=== PATIENT | female | born 1955 | race Caucasian/White ===

== ENCOUNTER 2017-03-07 05:15 | Inpatient (IN) | payer OTHER ==
[~2017-03-07] VITALS: Ht 162.6 cm; Wt 72.6 kg
[~2017-03-07 05:15] MED LIST: ESTRACE0.5 M1 PO
--- NOTE | 2017-03-07 07:31 | Admission Core Measures ---
Admission Meds I reviewed the following Meds: Current Medications Sig/Ambar Start time Last Medication Dose Stop Time Status Admin Cefazolin Sodium 2,000 MG ONCE 03/07 0000 NR (Kefzol-Ancef Inj) 03/07 9519 Acute Coronary Syndrome Inclusion Criteria ACS Diagnosis No Inpatient Core Measures LDL Reminder: If No, please order W/I first 24hr of stay Congestive Heart Failure Inclusion Criteria CHF Diagnosis No Cerebrovascular accident Inclusion Criteria CVA/TIA Diagnosis No Inpatient Core Measures Bedside Swallow Eval Reminder: If BSE failed, place ST order Antithrombotic Reminder: Order Antithrombotic Medication by end of day 2 Antithrombotic Reminder: Document Reason Antithrombotic Not ordered by end of day 2 AFIB/Flutter Reminder: If Present, add to problem list AFIB/Flutter Reminder: Order Anticoag Medication for pts with AFIB/Flutter Atherosclerosis Reminder: If Present, add to problem list LDL Reminder: If No, please order W/I first 24hr of stay PT Order Reminder: If No, please order Venous thromboembolism Inpatient Core Measures VTE Risk Factors: Age > 40, Estrogen, [facility] prophylaxis d/t No contraindications No VTE Pharm Prophylaxis d/t No contraindications Inclusion Criteria - Per Current guidelines, there needs to be overlap - treatment for the first 5 days of Warfarin therapy. - Parenteral Anticoagulation (IV or SC) needs to be - given along with Warfarin therapy. VTE Diagnosis No VTE Type NONE VTE Confirmed by (Test) NONE Problem List As ranked by this Provider includes Assessment & Plan 1. Status post total hip replacement, right HOME MEDS Home Med List Estradiol (Estrace) 0.5 MG TABLET 1 TAB PO DAILY HRT (Reported)
[2017-03-07] MEDS ORDERED: COLACE100 M1 PO (07:58)
[2017-03-07] MEDS ORDERED: DILAUDID2 M1 PO (07:58)
[2017-03-07] MEDS ORDERED: MS CONTIN15 M2 PO (07:58)
[2017-03-07] MEDS ORDERED: MIRALAX17 G1 PO (07:58)
[2017-03-07] MEDS ORDERED: ASPIRIN325 M2 PO (07:58)
--- NOTE | 2017-03-07 08:01 | Patient Discharge Instructions ---
Discharge Instructions General Discharge Information You were seen/treated for: Right hip degenerative joint disease You had these procedures: Right total hip arthroplasty Watch for these problems: Significantly increased pain or difficulty ambulating, temperatures over 101 Increased redness or drainage from incision No bath, but you may shower: Yes Other wound care: Daily dry dressing change Special Instructions: See pre-printed information packet Diet Continue normal diet: Yes Activity Activity Self Limited: Yes Other activity limits: Ambulate with walker as instructed by physical therapy Do not drive or operate machinery until seen by your surgeon and off all pain medications Acute Coronary Syndrome Inclusion Criteria At DC or during hospital stay patient has or had the following: ACS DIAGNOSIS No Discharge Core Measures Meds if any: Prescribed or Continued at Discharge Meds if any: NOT Prescribed or Continued at Discharge Congestive Heart Failure Inclusion Criteria At DC or during hospital stay patient has or had the following: CHF DIAGNOSIS No Discharge Core Measures Meds if any: Prescribed or Continued at Discharge Meds if any: NOT Prescribed or Continued at Discharge Cerebrovascular accident Inclusion Criteria At DC or during hospital stay patient has or had the following: CVA/TIA Diagnosis No Discharge Core Measures Meds if any: Prescribed or Continued at Discharge Meds if any: NOT Prescribed or Continued at Discharge Venous thromboembolism Inclusion Criteria VTE Diagnosis No VTE Type NONE VTE Confirmed by (Test) NONE Discharge Core Measures - Per Current guidelines, there needs to be overlap - treatment for the first 5 days of Warfarin therapy. - If discharged on Warfarin prior to 5 days of - overlap therapy, the patient will need to be - assessed for post discharge needs including - *Post discharge parental anticoagulation - *Warfarin and/or parental anticoagulation education - *Follow up date to check INR post discharge At least 5 days overlap therapy as Inpatient No Meds if any: Prescribed or Continued at Discharge Note: Overlap Therapy is Warfarin and Anticoagulant Meds if any: NOT Prescribed or Continued at Discharge
--- NOTE | 2017-03-07 08:05 | Surg Short-stay <48hrs Dis Sum ---
Visit Information Visit Dates Admission Date: 03/07/17 Discharge Date: 03/08/17 Surgical Short Stay DC Summary Admission Diagnosis: Right hip degenerative joint disease Final Diagnosis: Same Procedure(s): Right total hip arthroplasty Summary/Significant Findings: The patient was admitted on 03/07/2017. She was brought to the operating theater later that day and she underwent a right total hip arthroplasty. Postoperativly the patient progressed as expected, her pain was under adequate control, and she ambulating well with physical therapy. The patient was discharged as an uneventful hospital course. Condition at Discharge: Stable Discharge Disposition: home health services Discharge instructions provided to patient/family: Yes Post discharge follow-up plan: Call the office to be seen in 6 weeks or earlier if needed
--- NOTE | 2017-03-07 10:11 | RADIOLOGY REPORT ---
EXAMINATION: XR HIP, RIGHT CLINICAL INFORMATION: Total hip replacement. COMPARISON: None TECHNIQUE: Two views of the right hip. FINDINGS: The noncemented components of the total hip arthroplasty are in satisfactory position and there is anatomic alignment at the hip. There is estimated to be approximately 40 degrees lateral version and 30 degrees anterior version of the acetabular cup. No periprosthetic fracture. Postoperative soft tissue emphysema around the hip. IMPRESSION: Satisfactory positioning and alignment of components of right total hip arthroplasty.
[2017-03-07 11:30] VITALS: BP 138/7
--- NOTE | 2017-03-07 13:02 | PN- Orthopedic ---
Subjective Subjective: No events noted in PACU. Patient currently admits to minimal right hip pain (). Denies any numbness or tingling in RLE. Denies any calf pain. Denies any nausea, vomiting, chest pain, or SOB. She has not yet voided since surgery. Objective Vital Signs and I&Os Vital Signs Date Time Temp Pulse Resp B/P B/P Pulse O2 O2 Flow FiO2 Mean Ox Delivery Rate 03/07 1130 98.4 64 18 138/7 96 Room Air Room Air Intake & Output 03/07 1600 03/07 0800 03/07 0000 03/06 1600 03/06 0800 03/06 0000 Intake Total Output Total Balance Patient 160 lb Weight Physical Exam: Afebrile, VSS. General: Lying in bed in NAD. Cardiac: RRR, no murmur noted Pulmonary: CTAB. RLE: Dressing is c/d/i. Non tender to palpation at dressing site. Sensation and motor grossly intact. No calf tenderness. 2+ DP/PT pulse. Current Medications: Current Medications Sig/Ambar Start time Last Medication Dose Route Stop Time Status Admin Acetaminophen 1,000 MG Q8 03/07 0743 AC IV 03/07 2201 Acetaminophen 0 .STK-MED ONE 03/07 0730 DC PO Aspirin 325 MG BID 03/07 1000 AC PO Bupivacaine HCl/ 30 ML .STK-MED ONE 03/07 0930 DC Epinephrine Bitart SC 03/07 0931 Cefazolin Sodium 1,000 MG IQ8 03/07 1600 AC IV 03/08 0001 Cefazolin Sodium 2,000 MG ONCE 03/07 0000 DC IV 03/07 2359 Clonidine 1 MCG .STK-MED ONE 03/07 0930 DC EPID 03/07 0931 Dextrose/Sodium 1,000 ML .[id number] 03/07 1130 AC 03/07 Chloride IV 1208 Docusate Sodium 100 MG BID 03/07 1000 AC PO Estradiol 0.5 MG DAILY 03/07 1000 AC PO Hydromorphone HCl 2 MG Q4P PRN 03/07 1130 AC PO Hydromorphone HCl 4 MG Q4P PRN 03/07 1130 AC PO Ketorolac 15 MG Q8P PRN 03/07 1130 AC Tromethamine IV 03/10 1130 Lactobacillus 1 CAP DAILY 03/07 1000 AC Acidophilus PO Morphine Sulfate 2 MG Q2P PRN 03/07 1130 AC IV Ondansetron HCl 4 MG Q6P PRN 03/07 1130 AC IV Oxycodone HCl 0 .STK-MED ONE 03/07 0731 DC PO Polyethylene Glycol 17 GM DAILY 03/07 1000 AC PO Povidone Iodine 1 LETICIA .STK-MED ONE 03/07 0930 DC TOP 03/07 0931 Prochlorperazine 10 MG Q6P PRN 03/07 1130 AC PO Results Recent Imaging Studies: Post-op right hip x-ray: Satisfactory positioning and alignment of components of right total hip arthroplasty. Assessment/Plan Assessment/Plan 61 y/o female POD # 0 s/p right total hip arthroplasty, doing well post operatively. - Diet as tolerated - IV/PO pain medications - Antiemetics prn nausea - PT consultation - Monitor ability to void - DVT ppx - ASA 325mg BID - Plan for d/c tomorrow Core Measures/Miscellaneous Venous Thromboembolism VTE Risk Factors: Age > 40, Estrogen, Surgery VTE Contraindications: No Contraindications VTE Diagnosis: No VTE Type: NONE VTE Confirmed by (Test): NONE Beta Veronica Is Beta Veronica a Home Med? No Antibiotics Is Patient on Antibiotics? Yes If Yes: prophylaxis
[2017-03-07 13:58] VITALS: BP 122/82
[2017-03-07 16:02] VITALS: BP 116/80
--- NOTE | 2017-03-07 19:15 | Operative Report ---
Operative/Inv Procedure Report Surgery Date: 03/07/17 Name of Procedure: Right total hip replacement Pre-Operative Diagnosis: Primary right hip DJD Post-Operative Diagnosis: Same Estimated Blood Loss: 250 Surgeon/Social Worker Clinical: JAM PATEL,GRISEL Burns Anesthesia: block Operative/Procedure Note Note: Description of Procedure: The patient was taken to the operating room and positively identified. After induction of spinal anesthesia and administration of appropriate pre-operative antibiotics, the patient was positioned supine on the operating room table and all bony prominences were well padded. After performing a surgical timeout, the right lower extremity was prepped and draped in the usual sterile fashion. A direct anterior approach was made to the right hip. The incision was carried sharply through superficial soft tissues to the level of the fascia. Meticulous hemostasis was maintained with Bovie electocautery. The fascia over the tensor fascia blake muscle was opened sharply and the interval between the TFL and the sartorius was entered bluntly taking care to stay lateral to the lateral femoral cutaneous nerve. Retractors were placed around the femoral neck and the pericapsular fat was identified. The ascending branches of the lateral femoral circumflex vessels were identified and carefully coagulated. The pericapsular fat and anterior capsule were then resected. A napkin ring osteotomy was performed and the femoral head was removed without difficulty. Attention was then turned to the acetabulum. After appropriate placement of retractors, the acetabulum was exposed. Soft tissue was cleaned from the acetabular margin and notch. Overhanging osteophytes were removed and the teardrop was exposed. The acetabulum was then sequentially reamed to accept a 54 mm Vy Tritanium hemispherical solid back shell. This was impacted into place in the appropriate position and fitted with a 36 mm Trident X3 zero degree polyethylene insert. Attention was then turned to the femur. After performing the appropriate ligament releases, the proximal femur was exposed. It was then sequentially broached to accept a size #4 [place] Accolade 2 stem. This was trialed for leg length and stability. The trial component was removed and the final component was impacted into place. The trunnion was carefully cleaned and fit with a 36 mm, +0 Biolox delta ceramic femoral head. The hip was reduced and put through a full range of motion and found to be stable. The articular space was then irrigated with sterile saline. The periarticular soft tissues were infilitrated with Marcaine. The fascial layer was closed with interrupted #1 vicryl suture and the skin was re-approximated with interrupted 2 -0 vicryl. The skin was closed with a running 3-0 V-Lock suture. Steri-strips and a sterile dressing were applied. The patient was awakened and taken to the recovery room in satisfactory condition.
[2017-03-07 22:40] VITALS: BP 122/78
[2017-03-08 02:59] VITALS: BP 118/80
[2017-03-08 07:00] VITALS: BP 110/64
--- NOTE | 2017-03-08 07:02 | PN- Orthopedic ---
Subjective Subjective: The patient was seen this morning postoperatively day #1. She reports that her pain is under adequate control and has no other complaints at the current time. She is eager to work with physical therapy and be discharged later today if okay. Objective Vital Signs and I&Os Vital Signs Date Time Temp Pulse Resp B/P B/P Pulse O2 O2 Flow FiO2 Mean Ox Delivery Rate 03/08 0259 97.6 61 18 118/80 95 Room Air / 2240 97.5 56 18 122/78 95 Room Air 03/07 1602 97.6 65 20 116/80 97 Room Air / 1438 Room Air / 1358 97.8 67 20 122/82 99 / 1130 98.4 64 18 138/7 96 Room Air Room Air Intake & Output 03/08 0800 03/08 0000 03/07 1600 / 0800 / 0000 / 1600 Intake Total 1040 1025 Output Total 800 2300 1000 Balance -800 -1260 25 Intake, IV 225 Intake, Oral 1040 800 Output, Urine 800 2300 1000 Patient 160 lb Weight Physical Exam: Gen.: Alert and in no obvious distress Skin: Warm and dry Extremities: Bilateral lower extremities are warm without calf tenderness or significant edema. Gross motor and sensory are intact. Right hip surgical dressing is clean, dry, and intact. There is expected nando- incisional edema and thigh compartments remain soft. Assessment/Plan Assessment/Plan Assessment: 61-year-old female status post right total hip arthroplasty postoperative day #1. The patient is progressing as expected and her pain is under adequate control. Plan: Continue to work with physical therapy Hep-Lock IV fluids Continue current pain regiment GI and DVT prophylaxis Follow-up morning laboratory studies Incentive spirometry Discharge home later today if okay with PT Core Measures/Miscellaneous Venous Thromboembolism VTE Risk Factors: Age > 40, Estrogen, Surgery VTE Contraindications: No Contraindications VTE Diagnosis: No VTE Type: NONE VTE Confirmed by (Test): NONE Beta Veronica Is Beta Veronica a Home Med? No Antibiotics Is Patient on Antibiotics? No
[2017-03-08 08:23] LABS: ABSOLUTE BASOPHIL COUNT 0 /CUMM (0.0-0.2); ABSOLUTE EOSINOPHIL COUNT 0 /CUMM (0.0-0.7); ABSOLUTE GRANULOCYTE CT 10.5 /CUMM (1.4-6.5); ABSOLUTE LYMPH COUNT 1.4 /CUMM (1.2-3.4); ABSOLUTE MONOCYTE COUNT 0.9 /CUMM (0.10-0.60); BASOPHIL % 0 % (0.0-2.0); EOSINOPHIL % 0.2 % (0-5); GRANULOCYTE % 82.1 % (42.2-75.2); HEMATOCRIT 33.9 % (37-47); MEAN CORPUSCULAR HGB 32.6 PG (27.0-31.0); MEAN CORPUSCULAR HGB CONC 33.3 G/DL (33.0-37.0); MEAN CORPUSCULAR VOLUME 97.8 FL (81.0-99.0); PLATELET COUNT 250 /CUMM (130-400); RBC DISTRIBUTION WIDTH 12.9 % (11.5-14.5); RED BLOOD CELL CT 3.47 /CUMM (4.20-5.40); WHITE BLOOD CELL COUNT 12.8 /CUMM (4.8-10.8)
--- NOTE | 2017-03-08 10:27 | NUR ---
NURSING NOTE: PT STABLE FOR DISCHARG PER . NILO PO DIET. AMBULATING W/RW INDEPENDENTLY. DISCHARGE INSTRUCTIONS GIVEN AND PT TO FLOAT OPERATOR AT [facility] ON HER WAY OUT. TEDS IN PLACE AND HIP KIT AND DRESSING SENT W/PT. VISITING NURSE INFO GIVEN TO PT AFTER DISCHARGE INSTRUCTIONS PRINTED.
== END 2017-03-08 10:23 | disposition home health service (06) | DRG 470 ==
LOC: SDA 05:15 → ENRESERV 10:23 → ENTRNSPT 10:47 → EDTRNSPTSTS 11:01 → 2NB 11:07 → CMPTRNSPT 11:08 → 2NB 20:28 → ENPENDDIS 03-08 07:04 → 2NB 03-08 10:23
PROVIDERS: Physician Assistant Surgical; ADMIT Orthopaedic Surgery
PROC: 0SR904A Replacement of Right Hip Joint with Ceramic on Polyethylene Synthetic Substitute, Uncemented, Open Approach (ICD-10-PCS; principal; 2017-03-07)
DX: M16.11 Unilateral primary osteoarthritis, right hip (principal); M06.9 Rheumatoid arthritis, unspecified; K58.9 Irritable bowel syndrome, unspecified; M45.9 Ankylosing spondylitis of unspecified sites in spine
CPT/HCPCS: 2NBP; 73502-RT; 82436; 88304; 97110-GO; 97116-GO; 97161-GP; 97530-GO; J0131; J0690; J0735; J2405; J7042